=== PATIENT | male | born 1945 | race Caucasian/White ===

== ENCOUNTER 2021-11-20 18:38 | Inpatient (IN) | payer MEDICARE ==
[~2021-11-20] VITALS: Ht 170.2 cm; Wt 83.9 kg
[2021-11-20] MEDS ORDERED: ACETAMINOPHEN ES 500 MG TABLET PO ONE (20:00)
[2021-11-20] MEDS ORDERED: IV NS 0.9% 1,000 ML BAG IV ONE ×2 (20:00→22:00)
[2021-11-20] MEDS ORDERED: PIPERACILLIN /TAZOBACTAM 3.375 G in IV D5W 50 ML IV ONE (20:00)
[2021-11-20] MEDS ORDERED: ONDANSETRON HCL/PF 4 MG/2 ML VIAL ONE (20:12)
[2021-11-20] MEDS ORDERED: PIPERACILLIN /TAZOBACTAM 3.375 G VIAL IV ONE (20:12)
[2021-11-20] MEDS ORDERED: MORPHINE SULFATE INJ 4 MG/ML DISP.SYRIN ONE (20:12)
[2021-11-20] MEDS ORDERED: ACETAMINOPHEN ES 500 MG TABLET ONE (20:13)
--- NOTE | 2021-11-20 20:13 | NUR ---
BIBRA C/O FEVER AND URINE RETENTION SINCE THIS MORNING. NOTED HEMATURIA ON MONDAY AND WAS SEEN BY HIS UROLOGIST BUT DENIES ANY GROSS HEMATURIA AT THE TIME. PT CHANGED INTO A GOWN AND PLACED ON MONITOR AND HR WAS TACHYCARDIC IN 120S AND TEMP 102 OAL. WAS AT THE BEDSIDE FOR EVAL.
[2021-11-20] MEDS ORDERED: LIDOCAINE 2% JEL UROJET 10 ML MM ONE (20:19)
[2021-11-20] MEDS ORDERED: MORPHINE SULFATE INJ 2 MG/ML DISP.SYRIN IV ONE (20:30)
[2021-11-20] MEDS ORDERED: ONDANSETRON HCL/PF 4 MG/2 ML VIAL IVP ONE (20:30)
--- NOTE | 2021-11-20 20:30 | NUR ---
[address] WAY TRAYLOR CATHETER INSERTED FOR CONTINUOUS BLADDER IRRIGATION PER MD ORDER. PT TOLERATED WELL. 800ML YELLOW CLOUDY OUTPUT.
[2021-11-20 20:49] LABS: BASOPHILS % (AUTO) 0.2 % (0.0-2.0); EOSINOPHILS % (AUTO) 0.3 % (0.0-6.0); HEMATOCRIT 50 % (39-51); HEMOGLOBIN 17.1 g/dL (13.5-17.5); LYMPHOCYTES # (AUTO) 0.6 K/uL (0.8-4.8); LYMPHOCYTES % (AUTO) 5.1 % (20.0-44.0); MEAN CORPUSCULAR HGB CONC 34 g/dl (31.0-36.0); MEAN CORPUSCULAR VOLUME 88 fL (80-96); MONOCYTES # (AUTO) 0.5 K/uL (0.1-1.30); NEUTROPHILS # (AUTO) 10.6 K/uL (1.8-8.9); NEUTROPHILS % (AUTO) 90.4 % (43.0-81.0); PLATELET COUNT (AUTO) 164 K/uL (150-450); RED BLOOD CELL COUNT(AUTO) 5.71 MIL/uL (4.5-6.0); WHITE BLOOD COUNT (AUTO) 11.7 K/uL (4.3-11.0)
[2021-11-20 21:15] LABS: CARBON DIOXIDE 25 mmol/L (21-32); CHLORIDE 104 mmol/L (98-107); CREATININE 1.2 mg/dL (0.6-1.3); GLUCOSE 132 mg/dL (74-106); POTASSIUM 3.7 mmol/L (3.5-5.1); SODIUM SERUM 142 mmol/L (136-145); UREA NITROGEN, BLOOD 22 mg/dL (7-18)
[2021-11-20 21:19] LABS: ALANINE AMINOTRANSFERASE 28 U/L (12-78); ALBUMIN 4.2 g/dL (3.4-5.0); ALKALINE PHOSPHATASE 55 U/L (46-116); ASPARTATE AMINOTRANSFERASE 18 U/L (15-37); BILIRUBIN,DIRECT 0.1 mg/dL (0.0-0.2); BILIRUBIN,TOTAL 0.6 mg/dL (0.2-1.0); TOTAL PROTEIN, SERUM 7.7 g/dL (6.4-8.2)
--- NOTE | 2021-11-20 21:25 | NUR ---
lactic acid 2.2
[2021-11-20 21:40] LABS: BILIRUBIN,URINE NEGATIVE (NEGATIVE); COLOR,URINE YELLOW (YELLOW); LEUKOCYTE ESTERASE ,URINE MODERATE (NEGATIVE); NITRITE, URINE NEGATIVE (NEGATIVE); PH,URINE 6.5 (5.0-8.0); PROTEIN,URINE TRACE mg/dl (NEGATIVE); UGLUCOSE NEGATIVE (NEGATIVE); UROBILINOGEN,URINE 0.2 EU/dL (0.2)
--- NOTE | 2021-11-20 21:47 | NUR ---
[facility] PAGED
[2021-11-20 21:53] LABS: BACTERIA,URINE 4+ /HPF (None Seen); RBC,URINE TOO NUMEROUS TO COUN /HPF (0-2); SQUAMOUS EPITHELIAL CELL,UR Few /HPF (None Seen); WBC,URINE TOO NUMEROUS TO COUN /HPF (0-3)
[2021-11-20] MEDS ORDERED: MAGNESIUM HYDROXIDE 30 ML UDC PO PRN (22:00)
[2021-11-20] MEDS ORDERED: Z GUARD REMEDY 4 OZ OINT TP PRN (22:00)
[2021-11-20] MEDS ORDERED: IV NS 0.9% 1,000 ML IV PRN (22:00)
[2021-11-20] MEDS ORDERED: MAG HYDROX/AL HYDROX/SIMETH 30 ML UDC PO PRN (22:00)
[2021-11-20] MEDS ORDERED: ZOLPIDEM TARTRATE 5 MG TABLET PO PRN (22:00)
[2021-11-20] MEDS ORDERED: ONDANSETRON HCL/PF 4 MG/2 ML VIAL IVP PRN (22:00)
[2021-11-20] MEDS ORDERED: HYDROCODONE/APAP 5/325MG TABLET PO PRN (22:00)
--- NOTE | 2021-11-21 00:18 | NUR ---
1100 ML YELLOW OUTPUT VIA TRAYLOR CATHETER
--- NOTE | 2021-11-21 01:03 | NUR ---
REPORT GIVEN TO COLTEN
--- NOTE | 2021-11-21 01:25 | NUR ---
PT TRANSPORTED TO ROOM 323-1 ON RETURNED GOODS INSPECTOR AND TRANSFERRED IN STABLE CONDITION. ALL PT BELONGINGS LEFT AT BEDSIDE.
[2021-11-21 01:30] VITALS: BP 146/80
--- NOTE | 2021-11-21 01:30 | NUR ---
RN ADMITTING NOTE PATIENT RECEIVED FROM IRINEO LA RN. PATIENT IS A/O X 4 ABLE TO MAKE NEEDS KNOWN. TELE MONITOR READS ST 107 BPM, CURRENTLY ON RA TOLERATING WELL. NO RESPIRATORY DISTRESS. PATIENT HAS A RA20G PATENT AND INTACT RUNNING 0.9 NS 125 ML/HR. PATIENT ONLY NOTED TO HAVE MILD R HEEL REDNESS, SKIN IS INTACT OTHERWISE. LACTIC ACID 2.3, TO HAVE REDRAW AT 0205. PATIENT IS VACCINATED X2 AND BOOSTED WITH MODERNA, REFUSES FLU AND PNEUMONIA VACCINE AT THIS TIME AND STATES HE WILL GET IT SOMEWHERE ELSE. PATIENT DOES NOT REMEMBER HOME MED, MEDS TO BE BROUGHT BY IN AM. TRAYLOR CATHETER PLACED IN ER, NOTED TO BE DRAINING YELLOW/STRAW COLORED URINE AT THIS TIME, PREVIOUSLY HAD HEMATURIA PER PATIENT. ORIENTED TO ROOM, RN, AND AUTO CLAIM REPRESENTATIVE. BELONGINGS INVENTORIED. SAFETY MEASURES IN PLACE: BED LOCKED AND IN LOWEST POSITION, CALL LIGHT WITHIN REACH, SIDE RAILS UP. BED ALARM ON. WILL MONITOR PATIENT CLOSELY.
[2021-11-21] MEDS ORDERED: PIPERACILLIN /TAZOBACTAM 3.375 G VIAL IV ONE ×2 (01:52→06:19)
[2021-11-21] MEDS: ZOSYN IVPB 3.375 G in IV D5W 50ml IV SCH ×2 (01:54→06:29)
--- NOTE | 2021-11-21 03:49 | NUR ---
RN NOTE INFORMED MD REGARDING LACTIC ACID 2.9 FROM MD GAR[place] ORDERS: INCREASE IVF TO 150 ML/HR. ORDER CARRIED OUT.
[2021-11-21 04:00] VITALS: BP 103/57
[2021-11-21] MEDS: ACETAMINOPHEN 325 MG TABLET PO PRN ×2 (04:10→20:42)
[2021-11-21 06:11] LABS: BASOPHILS % (AUTO) 0.1 % (0.0-2.0); HEMATOCRIT 42 % (39-51); HEMOGLOBIN 14.6 g/dL (13.5-17.5); LYMPHOCYTES # (AUTO) 0.9 K/uL (0.8-4.8); LYMPHOCYTES % (AUTO) 5.2 % (20.0-44.0); MEAN CORPUSCULAR HGB CONC 35 g/dl (31.0-36.0); MEAN CORPUSCULAR VOLUME 88 fL (80-96); MONOCYTES # (AUTO) 1.8 K/uL (0.1-1.30); MONOCYTES % (AUTO) 10.3 % (2.0-12.0); NEUTROPHILS # (AUTO) 14.9 K/uL (1.8-8.9); NEUTROPHILS % (AUTO) 84.4 % (43.0-81.0); PLATELET COUNT (AUTO) 143 K/uL (150-450); RED BLOOD CELL COUNT(AUTO) 4.81 MIL/uL (4.5-6.0); WHITE BLOOD COUNT (AUTO) 17.6 K/uL (4.3-11.0)
[2021-11-21] MEDS: IV NS 0.9% 1,000 ML IV PRN ×2 (06:39→20:41)
[2021-11-21 06:48] LABS: CALCIUM, SERUM 8.1 mg/dL (8.5-10.1); CREATININE 1.2 mg/dL (0.6-1.3); MAGNESIUM 1.7 mg/dL (1.8-2.4); PHOSPHORUS 1.8 mg/dL (2.5-4.9); POTASSIUM 3.6 mmol/L (3.5-5.1)
--- NOTE | 2021-11-21 06:58 | NUR ---
RN CLOSING NOTE PATIENT IN BED, SLEEPING, EASILY AWAKENED. PATIENT IS ON RA, TOLERATING WELL. PATIENT HAS RAC 20G PATENT AND INTACT WITH NS 150 ML/HR. PATIENT IS ABLE TO MAKE NEEDS KNOWN A/O X 4. TRAYLOR CATHETER DRAINING YELLOW/STRAW COLORED URINE. NO HEMATURIA NOTED. NO PAIN AT THIS TIME. SAFETY MEASURES IN PLACE: BED LOCKED AND IN LOWEST POSITION. CALL LIGHT WITHIN REACH, SIDE RAILS UP. ALL NEEDS MET AND ATTENDED. ALL ORDERS CARRIED OUT. WILL ENDORSE TO DAY SHIFT NURSE FOR RADHA.
[2021-11-21] MEDS: PANTOPRAZOLE 40 MG TABLET.DR PO SCH (07:18)
--- NOTE | 2021-11-21 07:31 | NUR ---
PASTOR OPENING NOTES: RECEIVED PATIENT AWAKE IN BED IN NO ACUTE SIGNS OF DISTRESS. A/O X4. ABLE TO MAKE NEEDS KNOWN, DENIES PAIN OR ANY DISCOMFORTS AT THIS TIME. ON ROOM AIR, BREATHING EVEN AND UNLABORED. CURRENT TELEMETRY READING SHOWS ST WITH PVC'S, HR HR 110, NO C/O CARDIAC DISTRESS VOICED AT THIS TIME. IV ACCESS ON RAC #2OG INTACT WITH IVF OF NS @150ML/HR INFUSING WELL, NO S/SX OF INFILTRATION/INFECTION NOTED AT SITE. TRAYLOR IN PACE AND ACTIVELY DRAINING CLEAR YELLOW URINE VIA GRAVITY. SAFETY PRECAUTIONS IN PLACED: BED LOW AND LOCKED, SIDE RAILS UP X2 AND CALL LIGHT WITHIN REACH. WILL CONTINUE TO MONITOR PT ACCORDINGLY
[2021-11-21 07:55] LABS: THYROID STIMULATING HORMONE 0.425 uIU/mL (0.358-3.74)
[2021-11-21 08:00] VITALS: BP 98/63
--- NOTE | 2021-11-21 09:43 | NUR ---
RN NOTES RECEIVED CALL FROM HOSPICE SPIRITUAL CARE COORDINATOR KARI WELCH THAT PT HAD CRITICAL HIGH LACTIC ACID 3.0. DR COREA ON UNIT AND MADE AWARE WITH ORDER TO ADMINISTER IV NS 250ML BULOS X1. WILL CARRY OUT ORDER
[2021-11-21] MEDS ORDERED: IV NS 0.9% 250 ML IV ONE (10:00)
[2021-11-21] MEDS: FAMOTIDINE (20 MG) 20 MG TABLET PO SCH ×3 (10:11→21:08)
[2021-11-21] MEDS: Magnesium 1GM/D5W 100ML PREMIX 100 ML IV SCH ×2 (11:26→12:28)
[2021-11-21 12:00] VITALS: BP 105/62
[2021-11-21] MEDS: PIPERACILLIN /TAZOBACTAM 3.375 G in IV D5W 100 ML IV SCH ×2 (12:28→20:15)
[2021-11-21] MEDS ORDERED: K PHOS NEUTRAL 250 MG TABLET PO ONE (12:30)
[2021-11-21] MEDS ORDERED: TADA5TAB2 PO (12:48)
--- NOTE | 2021-11-21 14:41 | NUR ---
RN NOTES RECEIVED CALL FROM LAB THAT PT HAS GRAM NEGATIVES RODS SEEN ON GRAM STAIN,. DR COREA MADE AWARE AND STATED THAT PT ALREADY ON IV ABX AND TO DO BLOOD CULTURE X 2SET GAIN TODAY.
[2021-11-21 16:00] VITALS: BP 102/61
--- NOTE | 2021-11-21 18:36 | NUR ---
CHAIN SALES REPRESENTATIVE CLOSING NOTES PT IN BED AWAKE AND WATCHING TV AT THIS TIME. A/O X4. ABLE TO MAKE NEEDS KNOWN. ON ROOM AIR, BREATHING EVEN AND UNLABORED, NO SOB NOTED DURING THE DAY.TELEMETRY READING SHOWS NSR WITH PVC'S, HR 87 AT THIS TIME, NO C/O CARDIAC DISTRESS VOICED DURING SHIFT. IV ACCESS ON RAC #2OG INTACT WITH IVF OF NS @150ML/HR INFUSING WELL, NO S/SX OF INFILTRATION/INFECTION NOTED AT SITE. TRAYLOR IN PACE AND ACTIVELY DRAINING CLEAR YELLOW URINE VIA GRAVITY, TRAYLOR CARE DONE. ALL NEEDS AND CARE ATTENDED WELL. SAFETY PRECAUTIONS MAINTAINED: BED LOW AND LOCKED, SIDE RAILS UP X2 AND CALL LIGHT AND TRAY WITHIN EASY REACH OF PT. WILL ENDORSE RADHA TO NIGHT SHIF
--- NOTE | 2021-11-21 19:15 | NUR ---
RN notes Received a phone call from JOSUÉ ching. Pt's lactic acid is 2.0. Will continue to monitor.
[2021-11-21 20:00] VITALS: BP 121/76
--- NOTE | 2021-11-21 20:42 | NUR ---
RN notes Pt's temp is 99.8. adimistered tylenol 650 mg/ po/prn as ordered. cooling measures is applied. will continue to monitor.
[2021-11-21] MEDS: TAMSULOSIN 0.4 MG CAP.SR.24H PO SCH (21:07)
--- NOTE | 2021-11-21 21:14 | NUR ---
RN notes Pt refused famotidine 20mg/2 tabs/po. explained risks and benefits and educate Pt. Pt stated "At home I only take in the morning." will continue to monitor. Addendum: 11/21/21 at 2120 by STELLA DURAN RN Returned meds to pyxis
--- NOTE | 2021-11-21 23:30 | NUR ---
TELE/RN NOTE PATIENT RECEIVED FROM NYASIA BALDWIN FOR RADHA.
[2021-11-22] MEDS: PIPERACILLIN /TAZOBACTAM 3.375 G in IV D5W 100 ML IV SCH ×3 (04:16→20:27)
[2021-11-22] MEDS: IV NS 0.9% 1,000 ML IV PRN (04:16)
[2021-11-22] MEDS: ACETAMINOPHEN 325 MG TABLET PO PRN ×3 (04:42→20:54)
--- NOTE | 2021-11-22 04:44 | NUR ---
TELE/RN NOTE PATIENT WITH TEMP OF 100.3. COOLING MEASURES INITIATED AND TYLENOL GIVEN. WILL RECHECK TEMP.
--- NOTE | 2021-11-22 06:30 | NUR ---
TELE/RN CLOSING NOTE PATIENT CURRENTLY SLEEPING IN BED. ALERT AND ORIENTED X 4. ABLE TO MAKE NEEDS KNOWN. DENIES PAIN AT THIS TIME. CONTINUES ON ROOM AIR WITH NO S/SX OF RESPIRATORY DISTRESS NOTED. IV ACCESS TO RIGHT AC #20G INTACT AND PATENT. CONTINUES ON IVF NS @ 150ML/HR. CONTINUES ON IV ABX. TELE MONITOR IN PLACE WITH CURRENT READING SR HR 84. TRAYLOR CATHETER IN PLACE DRAINING CLEAR, YELLOW URINE TO GRAVITY. CALL LIGHT WITHIN REACH. ASPIRATION, FALL AND SAFETY PRECAUTIONS MAINTAINED. WILL ENDORSE PLAN OF CARE TO ONCOMING SHIFT.
--- NOTE | 2021-11-22 07:36 | NUR ---
FEED MILL TENDER OPENING NOTES: RECEIVED PATIENT AWAKE IN BED IN NO ACUTE SIGNS OF DISTRESS. A/O X4. ABLE TO MAKE NEEDS KNOWN, DENIES PAIN OR ANY DISCOMFORTS AT THIS TIME. ON ROOM AIR, BREATHING EVEN AND UNLABORED. CURRENT TELEMETRY READING SHOWS NSR 79, NO C/O CARDIAC DISTRESS VOICED AT THIS TIME. IV ACCESS ON RAC #2OG INTACT WITH IVF OF NS @150ML/HR INFUSING WELL, NO S/SX OF INFILTRATION/INFECTION NOTED AT SITE. TRAYLOR IN PACE AND ACTIVELY DRAINING CLEAR YELLOW URINE VIA GRAVITY. SAFETY PRECAUTIONS IN PLACED: BED LOW AND LOCKED.
[2021-11-22] MEDS: PANTOPRAZOLE 40 MG TABLET.DR PO SCH (07:39)
[2021-11-22] MEDS: FAMOTIDINE (20 MG) 20 MG TABLET PO SCH ×2 (08:25→21:00)
[2021-11-22 08:58] VITALS: BP 119/73
[2021-11-22 10:06] LABS: BASOPHILS % (AUTO) 0.2 % (0.0-2.0); EOSINOPHILS % (AUTO) 0.1 % (0.0-6.0); HEMATOCRIT 41 % (39-51); HEMOGLOBIN 13.8 g/dL (13.5-17.5); LYMPHOCYTES # (AUTO) 0.9 K/uL (0.8-4.8); LYMPHOCYTES % (AUTO) 6.2 % (20.0-44.0); MEAN CORPUSCULAR HGB CONC 34 g/dl (31.0-36.0); MEAN CORPUSCULAR VOLUME 89 fL (80-96); MONOCYTES # (AUTO) 1.1 K/uL (0.1-1.30); MONOCYTES % (AUTO) 7.2 % (2.0-12.0); NEUTROPHILS # (AUTO) 12.6 K/uL (1.8-8.9); NEUTROPHILS % (AUTO) 86.3 % (43.0-81.0); PLATELET COUNT (AUTO) 128 K/uL (150-450); RED BLOOD CELL COUNT(AUTO) 4.63 MIL/uL (4.5-6.0); WHITE BLOOD COUNT (AUTO) 14.6 K/uL (4.3-11.0)
[2021-11-22 10:35] LABS: CALCIUM, SERUM 7.6 mg/dL (8.5-10.1); CARBON DIOXIDE 21 mmol/L (21-32); CHLORIDE 108 mmol/L (98-107); CREATININE 1.4 mg/dL (0.6-1.3); GLUCOSE 147 mg/dL (74-106); POTASSIUM 3.7 mmol/L (3.5-5.1); SODIUM SERUM 139 mmol/L (136-145); UREA NITROGEN, BLOOD 19 mg/dL (7-18)
[2021-11-22 12:00] VITALS: BP 151/86
--- NOTE | 2021-11-22 12:50 | NUR ---
RN NOTES PT NOTED WITH ELEVATED TEMP OF 100.4f, TYLENOL 650MG PO GIVEN. COOLING MEASURES IMPLEMENTED. WILL CONTINUE TO MONITOR.
[2021-11-22] MEDS ORDERED: K PHOS NEUTRAL 250 MG TABLET PO ONE (15:30)
[2021-11-22 15:57] VITALS: BP 110/58
--- NOTE | 2021-11-22 18:57 | NUR ---
MED/HOSPITAL ADMINISTRATIVE ASSISTANT CLOSING NOTE PATIENT CURRENTLY SLEEPING IN BED. ALERT AND ORIENTED X 4. ABLE TO MAKE NEEDS KNOWN. DENIES PAIN AT THIS TIME. CONTINUES ON ROOM AIR WITH NO S/SX OF RESPIRATORY DISTRESS NOTED. IV ACCESS TO RIGHT AC #20G INTACT AND PATENT. CONTINUES ON IV ABX. TRAYLOR CATHETER IN PLACE DRAINING CLEAR, YELLOW URINE TO GRAVITY. CALL LIGHT WITHIN REACH. ASPIRATION, FALL AND SAFETY PRECAUTIONS IN PLACE: BED IN LOWEST LOCKED POSITION, SIDE RAILS UP X 2, CALL LIGHT WITHIN REACH. MAINTAINED. WILL ENDORSE TO MOLDING CUTTER FOR RADHA.
--- NOTE | 2021-11-22 19:30 | NUR ---
RN opening notes Received Pt resting in bed comfortably. Pt is alert and orinetedX4. On room air. No SOB. No S/s of distress noted. IV site at L hand# 20 is clean, intact and infusing well NS @ 150 ml/hr. Hahn cath is intact and draining yellow urine. safety precautions is maintained. bed at low position, brakes locked, side rails upX2, hob elevated and call light is within reach. will continue to monitor.
--- NOTE | 2021-11-22 19:40 | NUR ---
RN notes Dr. Robles at the side.
[2021-11-22 20:00] VITALS: BP 158/92
[2021-11-22 20:38] VITALS: BP 158/92
--- NOTE | 2021-11-22 20:54 | NUR ---
RN notes Pt's temp is 101.1. administered tylenol 650 mg/ po/prn as ordered. cooling measures is applied. will continue to monitor.
--- NOTE | 2021-11-22 21:02 | NUR ---
RN notes Pt refused famotidine. explained risks and benefits. pt keep refusing. Pt stated "i don't need it." Will continue to monitor.
[2021-11-22] MEDS: MEROPENEM 1 G in IV NS 0.9% 100 ML IV SCH (21:39)
[2021-11-22] MEDS: TAMSULOSIN 0.4 MG CAP.SR.24H PO SCH (21:48)
--- NOTE | 2021-11-22 21:48 | NUR ---
RN notes Pt refused flomax. Educate and explained risks and benefits. pt stated 'Is not good for me. I take so many medications. Will continue to monitor. Returned flomax to [facility].
[2021-11-23] MEDS: IV NS 0.9% 1,000 ML IV PRN ×2 (03:16→16:45)
[2021-11-23 06:38] LABS: BASOPHILS % (AUTO) 0.2 % (0.0-2.0); EOSINOPHILS % (AUTO) 0.9 % (0.0-6.0); HEMATOCRIT 42 % (39-51); HEMOGLOBIN 14.4 g/dL (13.5-17.5); LYMPHOCYTES # (AUTO) 0.9 K/uL (0.8-4.8); LYMPHOCYTES % (AUTO) 10.4 % (20.0-44.0); MEAN CORPUSCULAR HGB CONC 34 g/dl (31.0-36.0); MEAN CORPUSCULAR VOLUME 87 fL (80-96); MONOCYTES # (AUTO) 0.8 K/uL (0.1-1.30); MONOCYTES % (AUTO) 8.8 % (2.0-12.0); NEUTROPHILS % (AUTO) 79.7 % (43.0-81.0); PLATELET COUNT (AUTO) 124 K/uL (150-450); RED BLOOD CELL COUNT(AUTO) 4.83 MIL/uL (4.5-6.0); WHITE BLOOD COUNT (AUTO) 8.8 K/uL (4.3-11.0)
--- NOTE | 2021-11-23 06:40 | NUR ---
RN closing notes Pt is resting in bed comfortably. Pt is alert and orinetedX4. On room air. No SOB. No S/s of distress noted. IV site at L hand# 20 is clean, intact and infusing well NS @ 150 ml/hr. Hahn cath is intact and draining yellow urine. safety precautions is maintained. bed at low position, brakes locked, side rails upX2, hob elevated and call light is within reach. Will endorse to am nurse for RADHA.
[2021-11-23 07:50] LABS: CREATININE 1.2 mg/dL (0.6-1.3); PHOSPHORUS 2.2 mg/dL (2.5-4.9)
--- NOTE | 2021-11-23 07:52 | NUR ---
MS RN OPENING NOTES Pt IS AWAKE IN BED RESTING COMFORTABLE AT THIS TIME. NO COMPLAINTS OF PAIN AND NO SIGNS OF DISTRESS NOTICED. Pt IS ON ROOM AIR AND TOLERATING WELL. IV ACCESS ON L HAND, NS RUNNING AT 150mL/hr. SAFETY MEASURES ARE IN PLACE: BED IS LOCKED AND IN LOWEST POSITION. SIDE RAILS UPx2. CALL LIGHT AND BEDSIDE TABLE ARE WITHIN REACH. WILL CONTINUE TO MONITOR THROUGHOUT THE SHIFT.
[2021-11-23] MEDS: MEROPENEM 1 G in IV NS 0.9% 100 ML IV SCH ×2 (08:08→21:11)
[2021-11-23] MEDS: FAMOTIDINE (20 MG) 20 MG TABLET PO SCH ×2 (08:08→21:11)
[2021-11-23] MEDS: PANTOPRAZOLE 40 MG TABLET.DR PO SCH (08:08)
[2021-11-23 08:33] VITALS: BP 142/89
[2021-11-23] MEDS ORDERED: K PHOS NEUTRAL 250 MG TABLET PO ONE (10:30)
[2021-11-23 16:00] VITALS: BP 138/67
[2021-11-23] MEDS: ACETAMINOPHEN 325 MG TABLET PO PRN ×2 (16:44→22:44)
--- NOTE | 2021-11-23 19:03 | NUR ---
MS RN LEDA BURLESON Pt IS IN BED RESTING. A/Ox4. BREATHING ON ROOM AIR AND TOLERATING WELL. NO COMPLAINTS OF PAIN AND NO SIGNS OF DISTRESS AT THIS TIME. SAFETY MEASURES ARE IN PLACE. BED IS LOCKED AND IN LOWEST POSITION. SIDE RAIL UPx2. CALL LIGHT AND BED SIDE TABLE ARE WIHTIN REACH. WILL ENDORSE TO ONCOMING SHIFT.
[2021-11-23 20:00] VITALS: BP 150/76
--- NOTE | 2021-11-23 20:00 | NUR ---
RN OPENING NOTES Patient is A&Ox4, no signs of distress, denies any needs at this time. NS infusing at 150cc/hr to L hand #20G IV. Hahn cath draining clear yellow urine. Will continue to monitor. Call light within reach. safety measures in place.
[2021-11-23] MEDS: TAMSULOSIN 0.4 MG CAP.SR.24H PO SCH (21:11)
--- NOTE | 2021-11-23 22:09 | NUR ---
attempted to obtain consent for PICC line insertion, explained risks and benefits and the reason it was ordered. Patient says he would like to think about it more in the morning before consenting.
--- NOTE | 2021-11-23 22:44 | NUR ---
patient's temp rechecked 100.8, states he feels very cold. Administered RPN tylenol. Will reassess.
--- NOTE | 2021-11-24 00:42 | NUR ---
temp down to 98.6
[2021-11-24] MEDS: IV NS 0.9% 1,000 ML IV PRN (02:58)
--- NOTE | 2021-11-24 06:32 | NUR ---
Patient is A&Ox4, fever resolved. NS infusing at 150cc/hr to L hand #20G, lozano cath with clear yellow output 2300cc this shift. No other issues. Patient currently sleeping but easy to wake in no signs of distress. Pt. states he will consider PICC line once he wakes up.
[2021-11-24] MEDS: PANTOPRAZOLE 40 MG TABLET.DR PO SCH ×2 (07:30→07:55)
--- NOTE | 2021-11-24 07:30 | NUR ---
RN MS NOTES PT IN BED, AWAKE, ALERT AND ORIENTED, NOT IN DISTRESS BUT COMPLAINS OF SOB, O2 SAT ON ROOM AIR IS 93%, PLACED ON O2 AT 2LPM VIA NASAL CANULA, O2 SAT IMPROVED TO 96%, CALL LIGHT PLACED WITHIN REACH, NEEDS ATTENDED.
[2021-11-24] MEDS: FAMOTIDINE (20 MG) 20 MG TABLET PO SCH ×2 (07:55→21:06)
[2021-11-24 08:00] VITALS: BP 150/89
[2021-11-24] MEDS: MEROPENEM 1 G in IV NS 0.9% 100 ML IV SCH ×2 (08:01→21:03)
[2021-11-24] MEDS: ACETAMINOPHEN 325 MG TABLET PO PRN ×2 (09:27→21:08)
[2021-11-24 09:52] LABS: THYROID STIMULATING HORMONE 1.564 uIU/mL (0.358-3.74)
[2021-11-24] MEDS: ATORVASTATIN 10 MG TABLET PO SCH (10:58)
[2021-11-24] MEDS: ASPIRIN 81 MG TAB.CHEW PO SCH (10:58)
[2021-11-24] MEDS: METOPROLOL TARTRATE 50 MG TABLET PO SCH ×2 (10:59→21:07)
[2021-11-24] MEDS: VALSARTAN 80 MG TABLET PO SCH (10:59)
--- NOTE | 2021-11-24 12:49 | NUR ---
RN MS NOTES PT SEEN BY DR. GUTIÉRREZ AND DR. LAWSON, PT FOR CT ANGIO, NO COMPLAINT AT THIS TIME, HAD FEVER THIS MORNING, TYLENOL AND COOLING MEASURES PROVIDED, TEMP WENT DOWN TO 98.1, KEPT COMFORTABLE.
[2021-11-24] MEDS ORDERED: IOHEXOL-350 100 ML VIAL IV ONE (14:38)
[2021-11-24] MEDS ORDERED: NITROGLYCERIN 0.4 MG/TAB BOTTLE ONE (14:38)
[2021-11-24] MEDS ORDERED: METOPROLOL TARTRATE INJ 5 MG/5 ML AMPUL ONE ×2 (14:39→15:27)
[2021-11-24] MEDS ORDERED: CT SWABBABLE VALVE TRANS SET 1 EA INFUS.SET MC ONE (14:39)
--- NOTE | 2021-11-24 16:06 | NUR ---
Received patient in CT ROOM at 1500. Explained procedure to patient and expressed understanding. All questions answered by provider. Procedure started at 1512 hrs. No signs of distress. Procedure completed at 1530. No untoward reactions noted with stable vitals signs.
--- NOTE | 2021-11-24 19:35 | NUR ---
MS RN OPENING NOTE PATIENT AWAKE IN BED, ALERT/ORIENTED X 4, PT ABLE TO MAKE NEEDS KNOWN. PATIENT DENIES PAIN AT THIS TIME. PT STABLE ON RA, NO S/S OF DISTRESS OR SOB NOTED, BREATHING EVEN AND UNLABORED. RIGHT AC #18G INTACT AND FLUSHING WELL HOWEVER PATIENT COMPLAINING OF IT HURTING HIM WHEN HE BENT HIS ARM SO IT WAS REMOVED INTACT WITH MINIMAL BLEEDING. LYNETTE MIDLINE INTACT AND FLUSHING WELL RUNNING NS @ 150 ML/HR. TRAYLOR CATH IN PLACE AND DRAINING YELLOW URINE. SAFETY MEASURES IN PLACE: CALL LIGHT WITHIN REACH, SIDE RAILS UP X 2, BED LOCKED IN LOW POSITION, BED ALARM ON. WILL CONTINUE TO MONITOR PATIENT
[2021-11-24 20:00] VITALS: BP 128/75
--- NOTE | 2021-11-24 21:00 | NUR ---
MS RN NOTE UNABLE TO ADMINISTER NEW BAG OF IVF BECAUSE POWER IS DOWN DUE TO MAINTENANCE REPAIRS AND OMNICELL NOT WORKING.
[2021-11-24] MEDS: TAMSULOSIN 0.4 MG CAP.SR.24H PO SCH (21:07)
--- NOTE | 2021-11-24 21:10 | NUR ---
MS RN NOTE PATIENT COMPLAINING OF FEELING FEVERISH, TEMP 99.0. TYLENOL 650 MG PO GIVEN PER PATIENT REQUEST. WILL CONTINUE TO MONITOR PATIENT
[2021-11-25] MEDS: IV NS 0.9% 1,000 ML IV PRN ×2 (03:15→16:10)
--- NOTE | 2021-11-25 06:40 | NUR ---
MS RN CLOSING NOTE PATIENT SLEEPING IN BED, NO SIGNIFICANT CHANGES THROUGHOUT SHIFT. PT STABLE ON RA, NO S/S OF DISTRESS OR SOB NOTED, BREATHING EVEN AND UNLABORED. LYNETTE MIDLINE INTACT AND INFUSING NS @ 75 ML/HR. TRAYLOR CATH IN PLACE AND DRAINING YELLOW URINE. MEDICATIONS GIVEN ORDERED, PT NEEDS MET THROUGHOUT SHIFT. SAFETY MEASURES IN PLACE: CALL LIGHT WITHIN REACH, SIDE RAILS UP X 2, BED LOCKED IN LOW POSITION, BED ALARM ON. WILL ENDORSE TO DAY SHIFT NURSE FOR CONTINUITY OF CARE
[2021-11-25 06:49] LABS: CALCIUM, SERUM 8.5 mg/dL (8.5-10.1); CREATININE 1.1 mg/dL (0.6-1.3); POTASSIUM 3.7 mmol/L (3.5-5.1)
[2021-11-25 06:56] LABS: BASOPHILS % (AUTO) 0.2 % (0.0-2.0); EOSINOPHILS % (AUTO) 2.4 % (0.0-6.0); HEMATOCRIT 40 % (39-51); HEMOGLOBIN 13.8 g/dL (13.5-17.5); LYMPHOCYTES # (AUTO) 1.1 K/uL (0.8-4.8); LYMPHOCYTES % (AUTO) 11.7 % (20.0-44.0); MEAN CORPUSCULAR HGB CONC 35 g/dl (31.0-36.0); MEAN CORPUSCULAR VOLUME 85 fL (80-96); MONOCYTES # (AUTO) 1.3 K/uL (0.1-1.30); NEUTROPHILS # (AUTO) 6.6 K/uL (1.8-8.9); NEUTROPHILS % (AUTO) 71.7 % (43.0-81.0); PLATELET COUNT (AUTO) 150 K/uL (150-450); RED BLOOD CELL COUNT(AUTO) 4.68 MIL/uL (4.5-6.0); WHITE BLOOD COUNT (AUTO) 9.2 K/uL (4.3-11.0)
--- NOTE | 2021-11-25 07:35 | NUR ---
RN OPENING NOTES Patient seen comfortably lying in bed, no apparent distress noted, respirations even and unlabored, no shortness of breath, denies any pain or discomfort at this time, no grimacing. Call light left within reach, safety precautions in place, brakes locked, side rails up X 2, will monitor closely for any changes.
[2021-11-25 08:08] VITALS: BP 122/68
[2021-11-25] MEDS: FAMOTIDINE (20 MG) 20 MG TABLET PO SCH ×2 (08:42→21:13)
[2021-11-25] MEDS: MEROPENEM 1 G in IV NS 0.9% 100 ML IV SCH ×2 (08:42→21:10)
[2021-11-25] MEDS: ATORVASTATIN 10 MG TABLET PO SCH (08:42)
[2021-11-25] MEDS: PANTOPRAZOLE 40 MG TABLET.DR PO SCH (08:42)
[2021-11-25] MEDS: ASPIRIN 81 MG TAB.CHEW PO SCH (08:42)
[2021-11-25] MEDS: VALSARTAN 80 MG TABLET PO SCH (08:43)
[2021-11-25] MEDS: METOPROLOL TARTRATE 50 MG TABLET PO SCH ×2 (08:43→21:13)
[2021-11-25 12:23] VITALS: BP 140/80
--- NOTE | 2021-11-25 19:04 | NUR ---
RN CLOSING NOTES Patient in bed, respirations even and unlabored, no shortness of breath, remained afebrile during shift. All due medications given per MD order, tolerating well. All needs anticipated, kept clean and dry, aspiration precautions observed at all times, safety precautions in place, frequent visual checks done, brakes locked, side rails up X 2, call light left within reach, will endorse to next shift for continuity of care.
[2021-11-25 20:00] VITALS: BP 147/87
[2021-11-25] MEDS: TAMSULOSIN 0.4 MG CAP.SR.24H PO SCH (21:13)
--- NOTE | 2021-11-26 06:16 | NUR ---
MS RN NOTES AWAKE & RESPONSIVE. NOT IN ANY DISTRESS. NO SOB NOTED. DENIES ANY PAIN OR DISCOMFORT AT THIS TIME. WITH IV-HL PATENT & INTACT. MONITORED ACCORDINGLY. CALL LIGHT WITHIN REACH. BED IN LOWEST POSITION. SR UP X 2 FOR SAFETY. WILL ENDORSE TO NEXT SHIFT.
[2021-11-26 06:46] LABS: CALCIUM, SERUM 8.3 mg/dL (8.5-10.1); POTASSIUM 3.8 mmol/L (3.5-5.1)
[2021-11-26 06:51] LABS: BASOPHILS % (AUTO) 0.3 % (0.0-2.0); EOSINOPHILS % (AUTO) 5.8 % (0.0-6.0); HEMATOCRIT 40 % (39-51); HEMOGLOBIN 14.1 g/dL (13.5-17.5); LYMPHOCYTES # (AUTO) 1.3 K/uL (0.8-4.8); LYMPHOCYTES % (AUTO) 18.6 % (20.0-44.0); MEAN CORPUSCULAR HGB CONC 35 g/dl (31.0-36.0); MEAN CORPUSCULAR VOLUME 85 fL (80-96); MONOCYTES # (AUTO) 1.1 K/uL (0.1-1.30); MONOCYTES % (AUTO) 15.1 % (2.0-12.0); NEUTROPHILS # (AUTO) 4.3 K/uL (1.8-8.9); NEUTROPHILS % (AUTO) 60.2 % (43.0-81.0); PLATELET COUNT (AUTO) 190 K/uL (150-450); RED BLOOD CELL COUNT(AUTO) 4.74 MIL/uL (4.5-6.0); WHITE BLOOD COUNT (AUTO) 7.2 K/uL (4.3-11.0)
[2021-11-26] MEDS: PANTOPRAZOLE 40 MG TABLET.DR PO SCH (07:30)
--- NOTE | 2021-11-26 07:59 | NUR ---
MS RN OPENING NOTES RECEIVED PATIENT IN BED, AWAKE, A/O X4. PATIENT ON ROOM AIR; BREATHING EVEN AND UNLABORED; NO SOB NOTED. NO COMPLAINS OF PAIN AT THIS TIME. LYNETTE MIDLINE PRESENT AND INTACT RUNNING NS @ 75 MLS/HR. SAFETY PRECAUTIONS IN PLACE; BED IN LOW POSITION AND LOCKED, RAILS UP X2, CALL LIGHT WITHIN REACH. WILL CONTINUE TO MONITOR PATIENT.
[2021-11-26] MEDS: IV NS 0.9% 1,000 ML IV PRN (08:37)
[2021-11-26] MEDS: ASPIRIN 81 MG TAB.CHEW PO SCH (08:38)
[2021-11-26] MEDS: ATORVASTATIN 10 MG TABLET PO SCH (08:38)
[2021-11-26] MEDS: VALSARTAN 80 MG TABLET PO SCH (08:39)
[2021-11-26] MEDS: FAMOTIDINE (20 MG) 20 MG TABLET PO SCH (08:39)
[2021-11-26] MEDS: METOPROLOL TARTRATE 50 MG TABLET PO SCH (08:40)
[2021-11-26 08:41] VITALS: BP 148/89
[2021-11-26] MEDS: MEROPENEM 1 G in IV NS 0.9% 100 ML IV SCH ×2 (08:41→20:06)
[2021-11-26] MEDS ORDERED: Valsartan 80MG PO (10:16)
[2021-11-26] MEDS ORDERED: TAMS-12 PO (10:16)
[2021-11-26] MEDS ORDERED: Tamsulosin PO (10:16)
[2021-11-26] MEDS ORDERED: METO50TA16 PO (10:16)
[2021-11-26] MEDS ORDERED: ASPI-1169 PO (10:16)
[2021-11-26] MEDS ORDERED: ATOR10TA PO (10:16)
[2021-11-26] MEDS ORDERED: LOSA50TA39 PO (10:17)
[2021-11-26] MEDS ORDERED: ERTA1VIA IJ (10:21)
[2021-11-26 11:58] LABS: EOSINOPHILS % (MANUAL) 2 % (0-4); LYMPHOCYTES % (MANUAL) 13 % (16-48); MONOCYTES % (MANUAL) 15 % (0-11.0); NEUTROPHILS % (MANUAL) 70 (42-76)
[2021-11-26 15:58] VITALS: BP 158/94
--- NOTE | 2021-11-26 18:54 | NUR ---
MS RN CLOSING NOTES PATIENT IN BED, AWAKE, A/O X4, AWAITING DISCHARGE. PATIENT ON ROOM AIR; BREATHING EVEN AND UNLABORED; NO SOB NOTED. NO COMPLAINS OF PAIN DURING SHIFT. LYNETTE MIDLINE PRESENT AND INTACT RUNNING NS @ 75 MLS/HR. ALL NEEDS ATTENDED DURING THE DAY. SAFETY PRECAUTIONS IN PLACE; BED IN LOW POSITION AND LOCKED, RAILS UP X2, CALL LIGHT WITHIN REACH. WILL ENDORSE TO TAX INVESTIGATOR NURSE FOR RADHA..
--- NOTE | 2021-11-26 19:26 | NUR ---
MS RN OPENING NOTE PATIENT AWAKE IN HIS BED. A/OX4. NO S/S OF DISTRESS, BREATHING SYMMETRICAL. RM AIR. LYNETTE MIDLINE INTACT. SAFETY MEASURES IN PLACE: BED AT LOWEST POSITION, RAILS UP X2, CALL DUFF WITHIN REACH. WILL CONTINUE TO MONITOR PATIENT; HOWEVER, PATIENT WILL BE D/C'd SHORTLY UPON COMPLETING ABX (MERREM).
[2021-11-26 20:00] VITALS: BP 152/96
--- NOTE | 2021-11-26 21:27 | NUR ---
MS TELEGRAPH REPEATER INSTALLER NOTE PATIENT WAS D/C'D HOME. PATIENT WAS A/OX4, AND IN GOOD SPIRITS. NO S/S OF DISTRESS. PATIENT WAS STABLE UPON LEAVING. PATIENT'S VS WNL. WRIST BAND REMOVED PER PROTOCOL. PATIENT'S BELONGINGS AND D/C PAPERWORK WERE ACCOUNTED FOR AND GIVEN TO PATIENT PRIOR TO LEAVING. LYNETTE MIDLINE LEFT INTACT PATIENT IS TO RECEIVE IV THERAPY OUTSIDE [facility] UTILIZING THIS MIDLINE. GREEN ANTIMICROBIAL CAPS ATTACHED TO EACH MIDLINE PORT FOR SAFETY AND CLEANLINESS. TRAYLOR CATH BAG SWITCHED OUT FOR PATIENT'S CONVENIENCE, ALONG WITH BEING HANDED 2 LEG BAND CATH BAGS. PATIENT WAS INSTRUCTED ON USE, CLEANLINESS AND UP-KEEP OF TRAYLOR TUBING AND BAG. PATIENT WAS ALSO EDUCATED ON MIDLINE CARE WELL S/S TO BE AWARE OF IF ANY INFECTION OR EMERGENCY SHOULD OCCUR. PATIENT FINISHED LAST BAG OF MERREM IV ABX PRIOR TO LEAVING. PATIENT'S ARRIVED ABOUT ONE HOUR PRIOR TO HIS LEAVING TO PROVIDE TRANSPORTATION. SHE WAS INCLUDED IN THE INSTRUCTIONS WELL. PATIENT WAS WHEELED DOWN VIA WHEELCHAIR TO PARKING LOT BY JULIA WINSTON WITHOUT ANY ISSUE.
== END 2021-11-26 21:53 | disposition home health service (06) | DRG 871 ==
LOC: ER 18:40 → TELE 11-21 00:44 → MED 11-22 16:58
PROVIDERS: ADMIT Student in an Organized Health Care Education/Training Program; ATTEND Internal Medicine
PROC: 05HF33Z Insertion of Infusion Device into Left Cephalic Vein, Percutaneous Approach (ICD-10-PCS; principal; 2021-11-24)
PROC: 05H633Z Insertion of Infusion Device into Left Subclavian Vein, Percutaneous Approach (ICD-10-PCS; 2021-11-24)
PROC: B547ZZA Ultrasonography of Left Subclavian Vein, Guidance (ICD-10-PCS; 2021-11-24)
DX: A41.51 Sepsis due to Escherichia coli [E. coli] (principal); N17.0 Acute kidney failure with tubular necrosis; E87.2 Acidosis; N10 Acute pyelonephritis; Z16.12 Extended spectrum beta lactamase (ESBL) resistance; N40.1 Benign prostatic hyperplasia with lower urinary tract symptoms; K21.9 Gastro-esophageal reflux disease without esophagitis; R33.8 Other retention of urine; E86.0 Dehydration; B96.89 Other specified bacterial agents as the cause of diseases classified elsewhere; E66.9 Obesity, unspecified; I10 Essential (primary) hypertension; Z85.46 Personal history of malignant neoplasm of prostate; Z20.822 Contact with and (suspected) exposure to COVID-19; R07.9 Chest pain, unspecified; Z68.29 Body mass index [BMI] 29.0-29.9, adult
CPT/HCPCS: 36410; 36415; 71045-TC; 75574; 76770-TC; 80048-TC; 80061-TC; 80076-TC; 81001; 83605-TC; 83735-TC; 84100-TC; 84439-TC; 84443-TC; 84484-TC; 85025-TC; 85730-TC; 87040-TC; 87081-TC; 87086-TC; 87186-TC; 93307-TC; 97116-TC; 97530-TC; A4217; C9803; G0378; J2185; J2270; J2405; J2543; J3475; J3490; J7030; J7050; J7060; Q9967